=== PATIENT | female | born 1965 | race Hispanic/Latino ===

== ENCOUNTER → 2017-11-28 | Outpatient (CLI) | payer BC | END | disposition home or self-care (01) | LOC: RAH 13:20 | PROVIDERS: ATTEND Internal Medicine | DX: R05 Cough (principal) | CPT/HCPCS: 71046 ==

== ENCOUNTER → 2018-11-16 | Outpatient (CLI) | payer BC | END | disposition home or self-care (01) | LOC: RAH 11:42 | PROVIDERS: ATTEND Internal Medicine | DX: R05 Cough (principal); M54.6 Pain in thoracic spine | CPT/HCPCS: 71046 ==

== ENCOUNTER → 2020-12-28 | Outpatient (CLI) | payer BC | END | disposition home or self-care (01) | LOC: RAH 14:43 | PROVIDERS: ATTEND Internal Medicine | DX: J45.20 Mild intermittent asthma, uncomplicated (principal); R05.1 Acute cough | CPT/HCPCS: 71046 ==